=== PATIENT | female | born 1995 | race Caucasian/White ===

== ENCOUNTER 2017-10-25 01:23 | Emergency (ER) | payer SELFPAY ==
[~2017-10-25] VITALS: Ht 160 cm; Wt 70.0 kg
[~2017-10-25 01:23] MED LIST: NAPR-576 PO
[2017-10-25 01:35] VITALS: BP 104/59; PULSE 81; RESP 18; TEMP 98.5; O2SAT 99
[2017-10-25 01:50] VITALS: BP 109/66; PULSE 79; RESP 20; TEMP 98; O2SAT 98
[2017-10-25] MEDS ORDERED: SODIUM CHLOR 0.9% 1000 ML INJ 1,000 ML IV ONE (02:04)
[2017-10-25 02:39] LABS: AUTOMATED NEUTROPHIL # 9.5 TH/MM3 (1.8-7.7); BASOPHIL % 0.2 % (0.0-2.0); EOSINOPHIL # 0.2 TH/MM3 (0-0.4); EOSINOPHIL % 1.6 % (0.0-4.0); HEMATOCRIT 36.4 % (35.0-46.0); HEMOGLOBIN 12.2 GM/DL (11.6-15.3); LYMPH % 25.4 % (9.0-44.0); LYMPHOCYTE # 3.5 TH/MM3 (1.0-4.8); MEAN CELL VOLUME 82.6 FL (80.0-100.0); MEAN CORPUSCULAR HEMOGLOBIN 27.8 PG (27.0-34.0); MEAN CORPUSCULAR HGB CONC 33.6 % (32.0-36.0); MEAN PLATELET VOLUME 8.2 FL (7.0-11.0); MONO % 4.7 % (0.0-8.0); MONOCYTE # 0.6 TH/MM3 (0-0.9); NEUT % 68.1 % (16.0-70.0); PLATELET COUNT 274 TH/MM3 (150-450); RED CELL DISTRIBUTION WIDTH 13.1 % (11.6-17.2); WHITE BLOOD COUNT 13.9 TH/MM3 (4.0-11.0)
[2017-10-25 02:55] LABS: BICARBONATE 24.3 MEQ/L (21.0-32.0); CREATININE 0.59 MG/DL (0.50-1.00)
--- NOTE | 2017-10-25 03:36 | PD ---
HPI Chief Complaint: Related Problem Time Seen by Provider: 02:03 Travel History International Travel<30 days: No Contact w/Intl Traveler<30days: No Traveled to known affect area: No History of Present Illness HPI The patient is a 22-year-old female who presents to the emergency department for vaginal spotting and . The patient is from [place], speaks minimal Venezuelan, the boyfriend translates at bedside. The patient is a whose last mental cycle was on August 29, 2017. The patient had some light vaginal spotting yesterday which has resolved today, however, she then developed some mild lower abdominal pelvic pain and cramping. She denies any dysuria. She does not know her blood type. Symptoms are moderate. PFSH Past Medical History Asthma: Yes Diminished Hearing: No Kidney Stones: Yes Respiratory: Yes (ASTHMA) Tetanus Vaccination: Unknown ?: Unknown LMP: 08/29/2017 Past Surgical History Surgical History: No Previous Surgery Social History Alcohol Use: No Tobacco Use: No Substance Use: No Allergies-Medications (Allergen,Severity, Reaction): Coded Allergies: No Known Allergies (Unverified Adverse Reaction, Unknown, 10/25/17) Reported Meds & Prescriptions Reported Meds & Active Scripts Active Review of Systems Except as stated in HPI: all other systems reviewed are Neg General / Constitutional: No: Fever HENT: No: Lightheadedness Gastrointestinal: No: Nausea, Vomiting, Abdominal Pain Genitourinary: Positive: Pelvic Pain, Vaginal Bleeding (Spotting), No: Dysuria , Discharge Neurologic: No: Dizziness Physical Exam Narrative GENERAL: Awake, alert, pleasant 22-year-old female who appears her stated age and is in no acute respiratory distress. SKIN: Focused skin assessment warm/dry. HEAD: Atraumatic. Normocephalic. NECK: Trachea midline. No JVD. CARDIOVASCULAR: Regular rate and rhythm. No murmur appreciated. RESPIRATORY: No accessory muscle use. Clear to auscultation. Breath sounds equal bilaterally. GASTROINTESTINAL: Abdomen soft, non-tender, nondistended. No rebound tenderness. Back: No CVA tenderness. MUSCULOSKELETAL: No obvious deformities. No clubbing. No cyanosis. No edema. NEUROLOGICAL: Awake and alert. No obvious cranial nerve deficits. Motor grossly within normal limits. Normal speech. PSYCHIATRIC: Appropriate mood and affect; insight and judgment normal. Data Data Last Documented VS Vital Signs Date Time Temp Pulse Resp B/P (MAP) Pulse Ox O2 Delivery O2 Flow Rate FiO2 10/25/17 01:50 98.0 79 20 109/66 (80) 98 Room Air Orders Orders Beta Hcg (Quant/Titer) (10/25/17 02:04) Complete Blood Count With Diff (10/25/17 02:04) Basic Metabolic Panel (Bmp) (10/25/17 02:04) Complete Rh (10/25/17 02:04) Us Pelvis (Ques Pr/Ect)W Trans (10/25/17 ) Urinalysis - C+S If Indicated (10/25/17 02:04) Sodium Chlor 0.9% 1000 Ml Inj (Ns 1000 M (10/25/17 02:04) Ed Urine Pregnancytest Poc (10/25/17 02:04) Labs Laboratory Tests Test 10/25/17 02:22 10/25/17 03:30 White Blood Count 13.9 TH/MM3 Red Blood Count 4.40 MIL/MM3 Hemoglobin 12.2 GM/DL Hematocrit 36.4 % Mean Corpuscular Volume 82.6 FL Mean Corpuscular Hemoglobin 27.8 PG Mean Corpuscular Hemoglobin Concent 33.6 % Red Cell Distribution Width 13.1 % Platelet Count 274 TH/MM3 Mean Platelet Volume 8.2 FL Neutrophils (%) (Auto) 68.1 % Lymphocytes (%) (Auto) 25.4 % Monocytes (%) (Auto) 4.7 % Eosinophils (%) (Auto) 1.6 % Basophils (%) (Auto) 0.2 % Neutrophils # (Auto) 9.5 TH/MM3 Lymphocytes # (Auto) 3.5 TH/MM3 Monocytes # (Auto) 0.6 TH/MM3 Eosinophils # (Auto) 0.2 TH/MM3 Basophils # (Auto) 0.0 TH/MM3 CBC Comment DIFF FINAL Differential Comment Blood Urea Nitrogen 12 MG/DL Creatinine 0.59 MG/DL Random Glucose 92 MG/DL Calcium Level 9.0 MG/DL Sodium Level 139 MEQ/L Potassium Level 3.6 MEQ/L Chloride Level 105 MEQ/L Carbon Dioxide Level 24.3 MEQ/L Anion Gap 10 MEQ/L Estimat Glomerular Filtration Rate 130 ML/MIN Human Chorionic Gonadotropin, Quant 59369 MIU/ML Urine Color LIGHT-YELLOW Urine Turbidity CLEAR Urine pH 6.0 Urine Specific [place] 1.004 Urine Protein NEG mg/dL Urine Glucose (UA) NEG mg/dL Urine Ketones NEG mg/dL Urine Occult Blood NEG Urine Nitrite NEG Urine Bilirubin NEG Urine Urobilinogen LESS THAN 2.0 MG/DL Urine Leukocyte Esterase NEG Urine RBC LESS THAN 1 /hpf Urine WBC LESS THAN 1 /hpf Urine Squamous Epithelial Cells 1 /hpf Urine Bacteria OCC /hpf Microscopic Urinalysis Comment CULT NOT INDICATED MDM Medical Decision Making Medical Screen Exam Complete: Yes Emergency Medical Condition: Yes Medical Record Reviewed: Yes Interpretation(s) Laboratory Tests Test 10/25/17 02:22 10/25/17 03:30 White Blood Count 13.9 TH/MM3 Red Blood Count 4.40 MIL/MM3 Hemoglobin 12.2 GM/DL Hematocrit 36.4 % Mean Corpuscular Volume 82.6 FL Mean Corpuscular Hemoglobin 27.8 PG Mean Corpuscular Hemoglobin Concent 33.6 % Red Cell Distribution Width 13.1 % Platelet Count 274 TH/MM3 Mean Platelet Volume 8.2 FL Neutrophils (%) (Auto) 68.1 % Lymphocytes (%) (Auto) 25.4 % Monocytes (%) (Auto) 4.7 % Eosinophils (%) (Auto) 1.6 % Basophils (%) (Auto) 0.2 % Neutrophils # (Auto) 9.5 TH/MM3 Lymphocytes # (Auto) 3.5 TH/MM3 Monocytes # (Auto) 0.6 TH/MM3 Eosinophils # (Auto) 0.2 TH/MM3 Basophils # (Auto) 0.0 TH/MM3 CBC Comment DIFF FINAL Differential Comment Blood Urea Nitrogen 12 MG/DL Creatinine 0.59 MG/DL Random Glucose 92 MG/DL Calcium Level 9.0 MG/DL Sodium Level 139 MEQ/L Potassium Level 3.6 MEQ/L Chloride Level 105 MEQ/L Carbon Dioxide Level 24.3 MEQ/L Anion Gap 10 MEQ/L Estimat Glomerular Filtration Rate 130 ML/MIN Human Chorionic Gonadotropin, Quant 16241 MIU/ML Urine Color LIGHT-YELLOW Urine Turbidity CLEAR Urine pH 6.0 Urine Specific [place] 1.004 Urine Protein NEG mg/dL Urine Glucose (UA) NEG mg/dL Urine Ketones NEG mg/dL Urine Occult Blood NEG Urine Nitrite NEG Urine Bilirubin NEG Urine Urobilinogen LESS THAN 2.0 MG/DL Urine Leukocyte Esterase NEG Urine RBC LESS THAN 1 /hpf Urine WBC LESS THAN 1 /hpf Urine Squamous Epithelial Cells 1 /hpf Urine Bacteria OCC /hpf Microscopic Urinalysis Comment CULT NOT INDICATED Ultrasound reveals viable intrauterine dating between 6 and 7 weeks. Differential Diagnosis Differential diagnosis includes , threatened AB, ectopic , missed AB, UTI, molar . Narrative Course IV was established, labs are drawn and sent, and the patient was placed on cardiac telemetry monitoring and continuous pulse oximetry monitoring. Bedside urine test was obtained, therefore, quantitative beta-hCG was sent to lab. Rh was sent to lab, was a positive, therefore, no indication for RhoGam. Ultrasound was ordered to confirm IUP. Ultrasound reveals an IUP with positive heart tones. UA was sent to lab. The patient declined Tylenol for lower abdominal cramping after ultrasound was performed. UA is negative. Patient is advised to follow-up with an tube builder. Return if symptoms worsen or progress. Diagnosis Primary Impression: Qualified Codes: Z3A.01 - Less than 8 weeks gestation of Additional Impression: Threatened Patient Instructions: General Instructions Additional Instructions: Please provide the patient a copy of her ultrasound results and lab results at discharge. Take a vitamin daily. Follow-up with a primary physician. Return if symptoms worsen or progress. Disposition: DISCHARGE HOME Condition: Stable Jung Gaspar MD Oct 25, 2017 03:36
[2017-10-25 03:49] LABS: BACTERIA, URINE OCC /hpf; BILIRUBIN, URINE NEG (NEG); BLOOD, URINE NEG (NEG); GLUCOSE,URINE NEG (NEG); KETONE, URINE NEG (NEG); NITRITE,URINE NEG (NEG); SQUAMOUS EPITHELIAL CELL URINE 1 /hpf (0-5); URINE COLOR LIGHT-YELLOW (YELLW/STRAW); URINE LEUKOCYTE ESTERASE NEG (NEG)
--- NOTE | 2017-10-25 04:08 | RADRPT ---
EXAM DATE/TIME: 10/25/2017 02:47 [facility] COMPARISON: No previous studies available for comparison. INDICATIONS : Vaginal bleeding. LAB(S): Beta-hCG: MEDICAL HISTORY : None. SURGICAL HISTORY : None. ENCOUNTER: Initial ACUITY: 1 day PAIN SCORE: 0/10 LOCATION: Bilateral pelvis MEASUREMENTS: UTERUS: 10.8 x 5.6 x 5.5 cm ENDOMETRIAL STRIPE: >20 mm RIGHT OVARY: not visualized. LEFT OVARY: 3.7 x 2.2 x 2.1 cm FREE FLUID: No CROWN RUMP LENGTH: 1.24 = 7 WKS 3 DAYS FHR: 171 BPM FINDINGS: Gestational sac is identified measuring 2.3 cm characteristic of 6 weeks 6 days size. pole has a crown-rump length 1.2 cm characteristic of 7 weeks 3 days size. heart rate of 171 beats per minute is documented by Doppler. Yolk sac is seen. No evidence of free fluid. The right ovary is not identified. CONCLUSION: Viable intrauterine dating between 6 and 7 weeks. Davi Nesbitt MD on October 25, 2017 at 4:03 Board Certified Radiologist. This report was verified electronically.
== END 2017-10-25 04:39 | disposition home or self-care (01) ==
LOC: NEPE 01:23
DX: O20.0 Threatened abortion (principal); O99.511 Diseases of the respiratory system complicating pregnancy, first trimester; J45.909 Unspecified asthma, uncomplicated; Z3A.01 Less than 8 weeks gestation of pregnancy
CPT/HCPCS: 76700; 76817; 80048; 81001; 84702; 84703; 85025; 86901; 96360; 99284; J7030

== ENCOUNTER 2018-05-25 15:52 | Inpatient (IN) ==
[2018-05-25] MEDS ORDERED: Sod Chloride 0.9% Inj 1,000 ML IV.CONT PRN (17:07)
[2018-05-25] MEDS ORDERED: Oxytocin 30 Units/500ml Premix 30 UNITS/500 ML BAG IV.SIG ONE (17:07)
[2018-05-25] MEDS ORDERED: fentaNYL Citrate Inj 100 MCG/2 ML Ampul IV.PUSH PRN (17:07)
[2018-05-25] MEDS ORDERED: Sodium Chlor 0.9% Inj 500 ML IV.SIG PRN (17:07)
[2018-05-25] MEDS ORDERED: Naloxone Inj 0.4 MG/ML Vial IV.PUSH PRN (17:07)
--- NOTE | 2018-05-25 17:09 | P.HPOB ---
History of Present Illness Primary Care Physician: No Primary Care Physician Chief Complaint: low amniotic fluid History of Present Illness: 23 yr old at 38/1 WGA found to have oligohydramnios at Dr. Brwon's office, whom directed her for direct admission and IOL. Pt denies any complications during , she has a history of asthma as a child, and Ovarian cyst. She has been having some leakage of fluid this last few days but no gush of fluid. Denies bleeding, baby moving ok. No contractions but some cramping. GBS + treated with antibiotics. No allergies. - Inpatient Certification I certify that the inpatient services were ordered in accordance with Medicare regulations governing the order. This includes certification that hospital inpatient services are reasonable and necessary and in the case of services not specified as inpatient-only under 42 CFR 419.22(n), that they are appropriately provided as inpatient services in accordance to with the 2-midnight benchmark under 43 CFR 412.3(e) Review of Systems Constitutional: Denies fever(s), Denies headache(s) Genitourinary: Reports other, Denies vaginal discharge, Denies vaginal itching Comments: mild cramping Musculoskeletal: Reports back pain PMFSH - History History Provided By: Patient - Medical / Surgical Hx Neg / Unobtainable Surgical History: No Previous Surgery - Tobacco History Second Hand Smoke Exposure: No Tobacco Use In Past 30 Days: No Smoking Status: Never smoker - Alcohol History How Often Do You Have a Drink Containing Alcohol: Never - Substance Use History Substance History: No History of Abuse Medications and Allergies Allergies Allergy/AdvReac Type Severity Reaction Status Date / Time No Known Allergies AdvReac Unknown Uncoded 10/25/17 01:49 Exam Narrative: GENERAL: Well-nourished, well-developed patient. SKIN: Warm and dry. HEAD: Normocephalic and atraumatic. EYES: No scleral icterus. No injection or drainage. ENT: No nasal drainage noted. Mucous membranes pink. Airway patent. CARDIOVASCULAR: Regular rate and rhythm without murmurs, gallops, or rubs. RESPIRATORY: Breath sounds equal bilaterally. No accessory muscle use. ABDOMEN/GI: Abdomen soft, non-tender, bowel sounds present, no rebound, no guarding GENITOURINARY: External Genitalia: intact and normal in appearance Cervix: posterior Dilatation: 0 cm Effacement: 20- 30% Station: -3 Presentation: vertex Membranes: unknown Uterine Contractions: absent EXTREMITIES: No cyanosis or edema. NEUROLOGICAL: Awake and alert. Normal speech. Caprini VTE Risk Assessment Caprini VTE Risk Assessment: No/Low Risk (score <= 1) Caprini Risk Assessment Model: Point Value = 1 Point Value = 2 Point Value = 3 Point Value = 5 Age 41-60 Minor surgery BMI > 25 kg/m2 Swollen legs Varicose veins or History of unexplained or recurrent spontaneous Oral contraceptives or hormone replacement Sepsis (< 1 month) Serious lung disease, including pneumonia (< 1 month) Abnormal pulmonary function Acute myocardial infarction Congestive heart failure (< 1 month) History of inflammatory bowel disease Medical patient at bed rest Age 61-74 Arthroscopic surgery Major open surgery (> 45 min) Laparoscopic surgery (> 45 min) Malignancy Confined to bed (> 72 hours) Immobilizing plaster cast Central venous access Age >= 75 History of VTE Family history of VTE Factor V Leiden Prothrombin [id number] Lupus anticoagulant Anticardiolipin antibodies Elevated serum homocysteine Heparin-induced thrombocytopenia Other congenital or acquired thrombophilia Stroke (< 1 month) Elective arthroplasty Hip, pelvis, or leg fracture Acute spinal cord injury (< 1 month) Prophylaxis Regimen: Total Risk Factor Score Risk Level Prophylaxis Regimen 0-1 Low Early ambulation 2 Moderate Order ONE of the following: *Sequential Compression Device (SCD) *Heparin 5000 units SQ BID 3-4 Higher Order ONE of the following medications: *Heparin 5000 units SQ TID *Enoxaparin/Lovenox 40 mg SQ daily (WT < 150 kg, CrCl > 30 mL/min) *Enoxaparin/Lovenox 30 mg SQ daily (WT < 150 kg, CrCl > 10-29 mL/min) *Enoxaparin/Lovenox 30 mg SQ BID (WT < 150 kg, CrCl > 30 mL/min) AND/OR *Sequential Compression Device (SCD) 5 or more Highest Order ONE of the following medications: *Heparin 5000 units SQ TID (Preferred with Epidurals) *Enoxaparin/Lovenox 40 mg SQ daily (WT < 150 kg, CrCl > 30 mL/min) *Enoxaparin/Lovenox 30 mg SQ daily (WT < 150 kg, CrCl > 10-29 mL/min) *Enoxaparin/Lovenox 30 mg SQ BID (WT < 150 kg, CrCl > 30 mL/min) AND *Sequential Compression Device (SCD) Assessment and Plan - Diagnosis (1) Oligohydramnios antepartum Code(s): O41.00X0 - Oligohydramnios, unspecified trimester, not applicable or unspecified Status: Acute (2) Third trimester Code(s): Z34.93 - Encounter for supervision of normal , unspecified, third trimester Status: Acute - Plan 23 yr old female at 38/1 WGA admitted for IOL due to oligohydramnios with VLADISLAV of 3. Plan: - Admit to L&D - Aminiosure test - GBS +: give Penicillin - Cervidil 10mg vaginal for augmentation - Anticipate vaginal delivery Pt seen and discussed with Dr. Gill and Dr. Rose
[2018-05-25] MEDS ORDERED: Citric Acid/Sodium Citrate Liq 30 ML UDC PO SCH (17:15)
[2018-05-25] MEDS ORDERED: PENICILLIN POTASSIUM IV.SIG ONE ×2 (17:51→19:00)
[2018-05-25 18:00] LABS: Baso # (Auto) 0.1 th/mm3 (0.0-0.2); Baso % (Auto) 0.4 % (0.0-2.0); Eos # (Auto) 0.1 th/mm3 (0.0-0.4); Eos % (Auto) 1.1 % (0.0-4.0); Hematocrit 36.2 % (35.0-46.0); Hemoglobin 12.8 gm/dL (11.6-15.3); Lymph # (Auto) 3.3 th/mm3 (1.0-4.8); Lymph % (Auto) 25.8 % (9.0-44.0); Mean Corpuscular HGB Conc 35.3 % (32.0-36.0); Mean Corpuscular Volume 84.9 fL (80.0-100.0); Mean Platelet Volume 9.3 fL (7.0-11.0); Mono # (Auto) 0.7 th/mm3 (0.0-0.9); Mono % (Auto) 5.4 % (0.0-8.0); Neut # (Auto) 8.7 th/mm3 (1.8-7.7); Neut % (Auto) 67.3 % (16.0-70.0); Platelet Count 229 th/mm3 (150-450); Red Blood Count 4.26 mil/mm3 (4.00-5.30); Red Cell Distribution Width 14.8 % (11.6-17.2); White Blood Count 12.9 th/mm3 (4.0-11.0)
[2018-05-25 18:14] LABS: Bilirubin,Urine Negative (Negative); Clarity,Urine Hazy (Clear); Color,Urine Yellow (Yellw/Straw); Glucose,Urine (UA) Negative (Negative); Leukocyte Esterase,Urine Moderate (Negative); Mucus,Urine Few /lpf (Occasional); Nitrite,Urine Negative (Negative); Specific Gravity,Urine 1.011 (1.002-1.035); Squamous Epithelial Cell,Urine 4 /hpf (0-5)
[2018-05-25 18:17] LABS: Amphetamine Urine With Conf Neg (Neg); Benzodiazepine Urine With Conf Neg (Neg); Cocaine Urine With Conf Neg (Neg); Opiates Urine With Conf Neg (Neg)
[2018-05-25 18:24] LABS: Cannabinoid Urine With Conf Neg (Neg)
[2018-05-25] MEDS: fentaNYL Citrate Inj 100 MCG/2 ML Ampul IV.PUSH PRN (23:11)
[2018-05-25] MEDS: Penicillin G Potassium Inj 2,500,000 UNIT in Sodium Chlor 0.9% Inj 100 ML IV.SIG SCH (23:13)
[2018-05-26] MEDS: Penicillin G Potassium Inj 2,500,000 UNIT in Sodium Chlor 0.9% Inj 100 ML IV.SIG SCH ×3 (02:57→11:00)
[2018-05-26] MEDS: fentaNYL Citrate Inj 100 MCG/2 ML Ampul IV.PUSH PRN (02:58)
[2018-05-26] MEDS ORDERED: fentaNYL 2MCG-Bupiv 0.125% Epi 150 ML EPIDURAL ONE (06:19)
[2018-05-26] MEDS ORDERED: Lidocaaine 1.5%/Epinephrine 1:200,000 PF Inj 5 ML Amp ONE (07:01)
[2018-05-26] MEDS ORDERED: Lidocaine PF 1% Inj 5 ML Vial ONE (07:01)
[2018-05-26] MEDS ORDERED: fentaNYL Citrate Inj 100 MCG/2 ML Ampul EPIDURAL ONE (08:04)
[2018-05-26] MEDS ORDERED: fentaNYL 2MCG-Bupiv 0.125% Epi 150 ML EPIDURAL PRN (08:04)
[2018-05-26] MEDS ORDERED: Oxytocin 30 Units/500ml Premix 30 UNITS/500 ML BAG IV.CONT PRN ×2 (08:13→12:15)
[2018-05-26] MEDS ORDERED: Benzocaine 20% Top Spray 60 ML Can TOPICAL PRN (12:15)
[2018-05-26] MEDS ORDERED: Zolpidem Tartrate 5 MG Tablet PO PRN (12:15)
[2018-05-26] MEDS ORDERED: Witch Hazel 50%/Glyderin 12.5% 40 Pad Jar RECTAL PRN (12:15)
[2018-05-26] MEDS ORDERED: Bisacodyl 10 MG Supp RECTAL PRN (12:15)
[2018-05-26] MEDS ORDERED: Naloxone Inj 0.4 MG/ML Vial IV.PUSH PRN (12:15)
--- NOTE | 2018-05-26 12:22 | P.OBDELI ---
Medical Induction of Labor: Yes Medical Induction Start Date: 05/25/18 Artificial Rupture of Membrane: Yes Artificial ROM Date: 05/26/18 Artificial ROM Time: 07:30 Anesthesia: Epidural, Lidocaine local to perineum Episiotomy: none Vaginal Delivery: Normal Presentation: Occiput anterior Nuchal Cord: None Delayed Cord Clamping (45 sec): Yes Placenta: Spontaneous delivery Laceration: 2 deg Repair: Chromic running Infant Male A Infant Delivery Date: 05/26/18 Delivery Time: 11:58 Weight: 2.59 kg score (1 min): 8 score (5 min): 9
[2018-05-26] MEDS ORDERED: Diphtheria/Tetanus/Pertussis Vaccine Inj 0.5 ML Syringe IM ONE (16:00)
[2018-05-26] MEDS ORDERED: Measles/Mumps/Rubella Vaccine Inj 0.5 ML Vial SQ ONE (16:00)
[2018-05-26] MEDS: Senna/Docusate Sodium 8.6/50 MG Tablet PO SCH (21:52)
[2018-05-26] MEDS: Acetaminophen 325 MG Tablet PO PRN (21:53)
--- NOTE | 2018-05-27 08:54 | P.PNOB ---
Subjective Post day: 1 Interval history: day # 1. AFVSS overnight. Pain minimal in the back. Decreased lochia. Denies dysuria. No breast tenderness. She is feeding the baby via breast and bottle. Appetite good. No nausea or vomiting. passing flatus. No bowel movement. Ambulating well. Denies calf pain, shortness of breath, or cough. Otherwise, she is doing well this morning and has no other complaints. She is GBS positive and would like to stay. Objective Vital Signs/I&O: Vital Signs 05/26/18 08:55 05/26/18 09:10 05/26/18 09:55 Temperature Pulse Rate 81 119 H 93 H Respiratory Rate Blood Pressure 99/64 L 115/61 123/74 05/26/18 10:25 05/26/18 10:40 05/26/18 10:50 Temperature 98.4 F Pulse Rate 102 H 100 H 105 H Respiratory Rate 20 Blood Pressure 123/72 123/76 123/72 05/26/18 11:25 05/26/18 11:35 05/26/18 11:45 Temperature Pulse Rate 107 H 120 H 139 H Respiratory Rate Blood Pressure 128/74 119/67 127/65 05/26/18 12:00 05/26/18 12:16 05/26/18 12:30 Temperature Pulse Rate 169 H 110 H 117 H Respiratory Rate Blood Pressure 128/85 124/71 137/62 05/26/18 12:45 05/26/18 13:00 05/26/18 13:15 Temperature Pulse Rate 106 H 100 H 98 H Respiratory Rate 16 Blood Pressure 122/67 112/61 124/58 L 05/26/18 13:30 05/26/18 13:45 05/26/18 14:00 Temperature 98.7 F Pulse Rate 91 H 91 H 99 H Respiratory Rate 18 Blood Pressure 119/69 110/67 119/66 05/26/18 15:08 05/26/18 15:09 05/26/18 20:00 Temperature 98.8 F 98.4 F Pulse Rate 87 72 Respiratory Rate 18 18 Blood Pressure 106/62 121/76 05/27/18 08:00 Temperature 97.8 F Pulse Rate 70 Respiratory Rate 20 Blood Pressure 109/65 Intake & Output 05/26/18 05/27/18 05/27/18 18:59 06:59 18:59 Intake Total 2200 / 0 Balance 2199 / 0 Weight 78 kg Intake: IV 2200 / 2200 LR 1000 mL Inj 1,000 ML @ 125 1000 / 1000 mls/hr IV.CONT .Q8H COUNT INCLUDES THE [facility] Rx#: [id number] LR 1000 mL Inj 1,000 ML @ 3000 1000 / 1000 mls/hr IV.SIG UNSCH PRN Rx#: [id number] Pfizerpen-G Inj 2,500,000 UNIT 200 / 200 In NS Inj 100 ML @ 200 mls/hr IV.SIG Q4H [facility] Rx#:[id number] Other: Weight On Admission 78 kg Result Diagrams: 05/25/18 17:25 Objective Remarks: GENERAL: Well-nourished, well-developed patient. CARDIOVASCULAR: Regular rate and rhythm without murmurs, gallops, or rubs. RESPIRATORY: Breath sounds equal bilaterally. No accessory muscle use. ABDOMEN/GI: Abdomen soft, non-tender. Fundus: Firm, non-tender at umbilicus. GENITOURINARY: Light to moderate bleeding. EXTREMITIES: No cyanosis or edema, non-tender, without signs of DVT. Medications and IVs: Active Medications Acetaminophen (Tylenol) 650 mg PO Q4H PRN PRN Reason: PAIN SCALE 1 TO 2 Last Admin: 05/26/18 21:53 Dose: 650 mg Al Hydroxide/Mg Hydroxide (Milk Of Elizabeth Garcia) 30 ml PO Q12H PRN PRN Reason: Mild Constipation Benzocaine (Americaine 20% Top [place]) 1 spray TOPICAL Q4H PRN PRN Reason: For Perineum Discomfort Last Admin: 05/26/18 14:10 Dose: 1 spray Bisacodyl (Dulcolax Supp) 10 mg RECTAL DAILY PRN PRN Reason: SEVERE CONSITIPATION Fentanyl/Bupivacaine/Sodium Chlor (Fentanyl 2 Mcg-Bupiv 0.125% Epi) 150 mls @ 10 mls/hr EPIDURAL PRN PRN PRN Reason: for Labor Pain Oxytocin (Pitocin 30 Units/Ns 500 Ml Premix) 30 units in 500 mls @ 1 mls/hr IV.CONT TITRATE PRN; Protocol PRN Reason: For induction of labor Oxytocin (Pitocin 30 Units/Ns 500 Ml Premix) 30 units in 500 mls @ 100 mls/hr IV.CONT UNSCH PRN PRN Reason: Heavy bleeding Ibuprofen (Motrin) 800 mg PO Q8H PRN PRN Reason: For Cramping Last Admin: 05/26/18 22:31 Dose: 800 mg Lactulose (Lactulose Liq) 30 ml PO DAILY PRN PRN Reason: SEVERE CONSITIPATION Naloxone HCl (Narcan Inj) 0.1 mg IV.PUSH Q2M PRN PRN Reason: for opiate reversal Ondansetron HCl (Zofran Odt) 4 mg PO Q6H PRN PRN Reason: NAUSEA OR VOMITING Senna/Docusate Sodium (Angela-Colace) 1 tab PO BID COUNT INCLUDES THE [facility] Last Admin: 05/26/18 21:52 Dose: 1 tab Sennosides (Senokot) 17.2 mg PO Q12H PRN PRN Reason: Moderate Constipation Sodium Chloride (Ns Flush) 2 ml IV.FLUSH PRN PRN PRN Reason: FLUSH AFTER USING IV ACCESS Sodium Chloride (Ns Flush) 2 ml IV.FLUSH BID COUNT INCLUDES THE [facility] Last Admin: 05/26/18 21:53 Dose: 2 ml Sodium Chloride (Ns Flush) 2 ml IV.FLUSH BID COUNT INCLUDES THE [facility] Last Admin: 05/26/18 21:48 Dose: Not Given Sodium Chloride (Ns Flush) 2 ml IV.FLUSH PRN PRN PRN Reason: FLUSH AFTER USING IV ACCESS Witch Lexy/Glycerin (Tucks Pads) 1 applicatio RECTAL QID PRN PRN Reason: HEMORRHOIDS Last Admin: 05/26/18 14:11 Dose: 1 applicatio Zolpidem Tartrate (Ambien) 5 mg PO HS PRN PRN Reason: SLEEP Assessment and Plan - Diagnosis (1) Oligohydramnios antepartum Code(s): O41.00X0 - Oligohydramnios, unspecified trimester, not applicable or unspecified Status: Acute (2) Third trimester Code(s): Z34.93 - Encounter for supervision of normal , unspecified, third trimester Status: Acute - Plan 23 yr old female (38/2 WGA w/oligohydramnios VLADISLAV of 3) s/p -Continue routine care. -Percocet and Motrin PRN pain. -Encouraged OOB. Advised pelvic rest for 6 wks. -Will need a f/u appt. within 6 wks. -Re: ctrl, she would like Nexplanon, will discuss at post visit at [facility]. -D/c in 1-2 more days. wdw OB attending Dr. Agarwal
[2018-05-27] MEDS: Senna/Docusate Sodium 8.6/50 MG Tablet PO SCH ×2 (09:07→21:53)
[2018-05-27] MEDS: Acetaminophen 325 MG Tablet PO PRN (14:00)
[2018-05-27] MEDS ORDERED: Diphtheria/Tetanus/Pertussis Vaccine Inj 0.5 ML Syringe IM ONE (21:00)
[2018-05-27] MEDS ORDERED: Influenza (Quadrivalent) Vaccine 0.5 ML Syringe IM ONE (21:15)
[2018-05-28] MEDS: Senna/Docusate Sodium 8.6/50 MG Tablet PO SCH (08:14)
--- NOTE | 2018-05-28 09:09 | P.PNOB ---
Subjective Post day: 2 Interval history: day # 2. AFVSS overnight. Pain minimal. Decreased lochia. Denies dysuria. No breast tenderness. She is feeding the baby via breast and bottle. Appetite good. No nausea or vomiting. Passing flatus. No bowel movement. Ambulating well. Denies calf pain, shortness of breath, or cough. Otherwise, she is doing well this morning and has no other complaints. Objective Vital Signs/I&O: Vital Signs 05/27/18 21:40 Temperature 98.9 F Pulse Rate 77 Respiratory Rate 16 Blood Pressure 109/74 Result Diagrams: 05/25/18 17:25 Objective Remarks: GENERAL: Well-nourished, well-developed patient. CARDIOVASCULAR: Regular rate and rhythm without murmurs, gallops, or rubs. RESPIRATORY: Breath sounds equal bilaterally. No accessory muscle use. ABDOMEN/GI: Abdomen soft, non-tender. Fundus: Firm, non-tender at umbilicus. GENITOURINARY: Light to moderate bleeding. EXTREMITIES: No cyanosis or edema, non-tender, without signs of DVT. Medications and IVs: Active Medications Acetaminophen (Tylenol) 650 mg PO Q4H PRN PRN Reason: PAIN SCALE 1 TO 2 Last Admin: 05/27/18 14:00 Dose: 650 mg Al Hydroxide/Mg Hydroxide (Milk Of Elizabeth Garcia) 30 ml PO Q12H PRN PRN Reason: Mild Constipation Benzocaine (Americaine 20% Top [place]) 1 spray TOPICAL Q4H PRN PRN Reason: For Perineum Discomfort Last Admin: 05/26/18 14:10 Dose: 1 spray Bisacodyl (Dulcolax Supp) 10 mg RECTAL DAILY PRN PRN Reason: SEVERE CONSITIPATION Fentanyl/Bupivacaine/Sodium Chlor (Fentanyl 2 Mcg-Bupiv 0.125% Epi) 150 mls @ 10 mls/hr EPIDURAL PRN PRN PRN Reason: for Labor Pain Oxytocin (Pitocin 30 Units/Ns 500 Ml Premix) 30 units in 500 mls @ 1 mls/hr IV.CONT TITRATE PRN; Protocol PRN Reason: For induction of labor Oxytocin (Pitocin 30 Units/Ns 500 Ml Premix) 30 units in 500 mls @ 100 mls/hr IV.CONT UNSCH PRN PRN Reason: Heavy bleeding Ibuprofen (Motrin) 800 mg PO Q8H PRN PRN Reason: For Cramping Last Admin: 05/28/18 08:14 Dose: 800 mg Lactulose (Lactulose Liq) 30 ml PO DAILY PRN PRN Reason: SEVERE CONSITIPATION Naloxone HCl (Narcan Inj) 0.1 mg IV.PUSH Q2M PRN PRN Reason: for opiate reversal Ondansetron HCl (Zofran Odt) 4 mg PO Q6H PRN PRN Reason: NAUSEA OR VOMITING Senna/Docusate Sodium (Angela-Colace) 1 tab PO BID [facility] Last Admin: 05/28/18 08:14 Dose: 1 tab Sennosides (Senokot) 17.2 mg PO Q12H PRN PRN Reason: Moderate Constipation Sodium Chloride (Ns Flush) 2 ml IV.FLUSH PRN PRN PRN Reason: FLUSH AFTER USING IV ACCESS Sodium Chloride (Ns Flush) 2 ml IV.FLUSH BID [facility] Last Admin: 05/27/18 21:54 Dose: Not Given Sodium Chloride (Ns Flush) 2 ml IV.FLUSH BID [facility] Last Admin: 05/27/18 21:54 Dose: Not Given Sodium Chloride (Ns Flush) 2 ml IV.FLUSH PRN PRN PRN Reason: FLUSH AFTER USING IV ACCESS Witch Lexy/Glycerin (Tucks Pads) 1 applicatio RECTAL QID PRN PRN Reason: HEMORRHOIDS Last Admin: 05/26/18 14:11 Dose: 1 applicatio Zolpidem Tartrate (Ambien) 5 mg PO HS PRN PRN Reason: SLEEP Assessment and Plan - Diagnosis (1) Oligohydramnios antepartum Code(s): O41.00X0 - Oligohydramnios, unspecified trimester, not applicable or unspecified Status: Acute (2) Third trimester Code(s): Z34.93 - Encounter for supervision of normal , unspecified, third trimester Status: Acute - Plan 23 yr old female (38/2 WGA w/oligohydramnios VLADISLAV of 3) s/p PPD#2 -Continue routine care. -Percocet and Motrin PRN pain. -Encouraged OOB. Advised pelvic rest for 6 wks. -Will need a f/u appt. within 6 wks. -Re: ctrl, she would like Nexplanon, will discuss at post visit at [facility]. -D/c today wdw OB attending Dr. Gill
[2018-05-28 10:30] VITALS: BP 114/65
[2018-05-28 10:31] VITALS: PULSE 83; RESP 18
[2018-05-28 10:32] VITALS: TEMP 98.3
== END 2018-05-28 14:06 | disposition home or self-care (01) ==
LOC: H2E 15:52 → H1EA 05-26 15:19
PROVIDERS: ADMIT Obstetrics & Gynecology; ATTEND Obstetrics & Gynecology